=== PATIENT | female | born 1995 | race Two or more races ===

== ENCOUNTER → 2019-05-15 04:55 | Outpatient (CLI) | payer SELFPAY ==
[2019-05-15 05:38] LABS: CHOL - HDL RATIO 3.9 ratio (2.3-4.1); LDL-HDL RATIO 2.2 ratio (1.5-3.5)
[2019-05-16 06:09] LABS: HEPATITIS C ANTIBODY <0.1 S/CO RAT (0.0-0.9)
== END | disposition home or self-care (01) ==
LOC: D.LAB 04:55
PROVIDERS: ATTEND Internal Medicine
DX: E11.9 Type 2 diabetes mellitus without complications (principal)